=== PATIENT | female | born 1995 | race Hispanic/Latino ===

== ENCOUNTER 2021-07-25 20:26 | Day surgery (SDC) | payer OTHER ==
[2021-07-25 21:08] VITALS: BMI 38.3
[2021-07-25 21:32] LABS: Fetal Membranes Rupture No Membranes Rupture (No Rupture)
[2021-07-25] MEDS ORDERED: hydrALAZINE 20 MG/ML VIAL SLOW IVP PRN (21:44)
== END 2021-07-25 22:02 | disposition home or self-care (01) ==
LOC: CSHLD/OP 20:26
PROVIDERS: ATTEND Family Medicine
DX: O99.891 Other specified diseases and conditions complicating pregnancy (principal); N89.8 Other specified noninflammatory disorders of vagina; Z3A.34 34 weeks gestation of pregnancy; Z91.013 Allergy to seafood; Z91.018 Allergy to other foods; Z91.030 Bee allergy status
CPT/HCPCS: 84112

== ENCOUNTER 2021-08-23 08:59 | Inpatient (IN) | payer OTHER ==
[2021-08-23] MEDS ORDERED: HYDROcodone/Acetaminophen 5/325 mg Tablet PO PRN ×2 (09:34→20:40)
[2021-08-23] MEDS ORDERED: Diphenoxylate HCl/Atropine Tablet PO PRN (09:34)
[2021-08-23] MEDS ORDERED: Butorphanol Tartrate 1 MG/ML VIAL SLOW IVP PRN (09:34)
[2021-08-23] MEDS ORDERED: Misoprostol 200 MCG TAB PR PRN (09:34)
[2021-08-23] MEDS ORDERED: Ibuprofen 800 MG TAB PO PRN (09:34)
[2021-08-23] MEDS ORDERED: hydrALAZINE 20 MG/ML VIAL SLOW IVP PRN ×2 (09:34→20:40)
[2021-08-23] MEDS ORDERED: Methylergonovine 0.2 MG/ML VIAL IM PRN (09:34)
[2021-08-23] MEDS ORDERED: Lidocaine 1% (PF) 30 ML VIAL SC PRN (09:34)
[2021-08-23] MEDS ORDERED: Acetaminophen 500 MG TAB PO PRN (09:34)
[2021-08-23] MEDS ORDERED: Ondansetron PF 4 MG/2 ML Vial IVP PRN ×2 (09:34→20:40)
[2021-08-23] MEDS ORDERED: Promethazine HCl 25 MG/ML VIAL IM PRN (09:34)
[2021-08-23] MEDS ORDERED: Carboprost 250 MCG/ML AMP IM PRN (09:34)
[2021-08-23 09:37] VITALS: BMI 39.9
[2021-08-23] MEDS ORDERED: NS w/ Oxytocin 30 units 500 ML IV SCH ×3 (09:45→20:40)
[2021-08-23] MEDS: Lactated Ringer's 1,000 ML IV SCH ×2 (10:43→14:35)
[2021-08-23 11:22] LABS: Hemoglobin 10.7 g/dL (12.0-15.5); Mean Corpuscular Hemoglobin 27.9 pg (27.0-33.0); Mean Corpuscular Volume 84.4 fl (81.6-98.3); Mean Platelet Volume 10.2 fl (7.4-10.4); Platelet Count 213 10x3/uL (150-450); RBC Distribution Width 13.4 % (11.5-14.5); Red Blood Cell (RBC) Count 3.84 10x6/uL (3.90-5.03); White Blood Cell (WBC) Count 8.6 10x3/uL (3.5-10.5)
[2021-08-23 12:30] LABS: Hep B Surf Ag Non-Reactive S/CO (NonReactive)
[2021-08-23 12:31] LABS: Syphilis Antibody Nonreactive (Nonreactive); Syphilis Antibody Index 0.02 S/CO (<1.00 Non-Reactive)
[2021-08-23 12:32] LABS: HBSAg Index 0.16 S/CO (0-0.99)
[2021-08-23 12:38] LABS: SARS-CoV-2 NAA Rapid Test Not Detected (NotDetected)
[2021-08-23] MEDS ORDERED: Benzocaine-Menthol 82.5 ML CAN TOP PRN (20:40)
[2021-08-23] MEDS ORDERED: Bisacodyl 10 MG SUPP PR PRN (20:40)
[2021-08-23] MEDS ORDERED: Boostrix 0.5 ML (Tdap) VIAL IM ONE (20:40)
[2021-08-23] MEDS ORDERED: Lanolin Ointment 7 GM TUBE TOP PRN (20:40)
[2021-08-23] MEDS ORDERED: diphenhydrAMINE 25 MG CAP PO PRN (20:40)
[2021-08-23] MEDS ORDERED: Milk Of Magnesia 30 ML UDCUP PO PRN (20:40)
[2021-08-23] MEDS: Docusate 100 MG CAP PO SCH (21:51)
[2021-08-24] MEDS: Ibuprofen 800 MG TAB PO SCH ×3 (05:28→13:59)
[2021-08-24] MEDS: Ferrous Sulfate 325 MG TAB PO SCH ×2 (07:40→18:09)
[2021-08-24] MEDS: Docusate 100 MG CAP PO SCH (08:38)
[2021-08-24] MEDS ORDERED: Prenatal Vitamin 1 TAB PO SCH (09:00)
[2021-08-24 20:46] VITALS: BP 113/59; TEMP 98
== END 2021-08-24 20:30 | disposition home or self-care (01) | DRG 807 ==
LOC: CSHLD/OP 08:59 → CSHLD 18:00 → CSHPED 21:45
PROVIDERS: ADMIT Family Medicine; ATTEND Family Medicine
PROC: 10E0XZZ Delivery of Products of Conception, External Approach (ICD-10-PCS; principal; 2021-08-23)
DX: O69.81X0 Labor and delivery complicated by cord around neck, without compression, not applicable or unspecified (principal); Z37.0 Single live birth; O71.82 Other specified trauma to perineum and vulva; Z3A.39 39 weeks gestation of pregnancy; Z20.822 Contact with and (suspected) exposure to COVID-19
CPT/HCPCS: 36415; 85027; 86780; 86850; 86900; 86901; 87340; 99285; J2001; J2590; U0002

== ENCOUNTER 2022-03-04 11:18 | Emergency (ER) | payer OTHER ==
[2022-03-04] MEDS ORDERED: Acetaminophen 500 MG TAB ONE (13:32)
[2022-03-04] MEDS ORDERED: Ketorolac Tromethamine 30 MG/ML VIAL ONE (13:55)
== END 2022-03-04 13:46 | disposition home or self-care (01) ==
LOC: CSHERS 11:18
DX: U07.1 COVID-19 (principal)
CPT/HCPCS: 96372; 99284; J1885; U0003; U0005